=== PATIENT | female | born 1950 | race African-American/Black ===

== ENCOUNTER 2018-11-05 20:45 | Inpatient (IN) | payer MEDICARE, MEDICAID ==
[~2018-11-05] VITALS: Ht 160 cm; Wt 66.3 kg
[2018-11-05 21:52] LABS: BASOPHILS % 0.8 % (0.0-2.0); EOSINOPHILS % 2.6 % (0.0-5.0); HEMATOCRIT. 37.7 % (36.0-48.0); HEMOGLOBIN. 12.5 g/dL (12.0-16.0); LYMPHOCYTES % 36.4 % (20.0-50.0); MEAN CORPUSCULAR HEMOGLOBIN 32.2 pg (28.0-32.0); MEAN CORPUSCULAR VOLUME 97.2 fL (81.0-99.0); MEAN PLATELET VOLUME 9.2 fl (7.4-10.4); MONOCYTES % 9.8 % (2.0-8.0); NEUTROPHILS % 50.4 % (40.0-76.0); PLATELET 294 x1000/uL (130-400); RED BLOOD CELL COUNT 3.88 mill/uL (4.2-5.4); RED CELL DISTRIBUTION WIDTH 14.1 % (11.6-14.6)
[2018-11-05 21:53] LABS: CLARITY URINE CLEAR (CLEAR); COLOR URINE YELLOW (YELLOW); KETONES URINE NEGATIVE (NEGATIVE); LEUKOCYTE ESTERASE URINE 1+ (NEGATIVE); NITRITE URINE NEGATIVE (NEGATIVE); OCCULT BLOOD URINE NEGATIVE (NEGATIVE); PROTEIN URINE TRACE (NEGATIVE); SPECIFIC GRAVITY URINE 1.019 (1.005-1.030); UROBILINOGEN URINE 0.2 E.U./dL (0.2-1.0)
[2018-11-05 21:58] LABS: CHLORIDE 108 mEq/L (98-107)
[2018-11-05 21:59] LABS: INR 1.1; PROTHROMBIN TIME 10.9 sec (9.1-11.1)
[2018-11-05 22:02] LABS: ETHANOL BLOOD < 10 mg/dL
[2018-11-05] MEDS ORDERED: DIPHENHYDRAMINE 50MG/ML VIAL IV PRN (23:15)
[2018-11-05] MEDS ORDERED: LORAZEPAM 2MG/ML CPJ IV PRN (23:15)
[2018-11-05] MEDS ORDERED: ONDANSETRON HCL 4MG/2ML INJ IV PRN (23:15)
[2018-11-05] MEDS ORDERED: GUAIFENESIN 200MG/10ML SUGAR FREE UDC PO PRN (23:15)
[2018-11-05] MEDS ORDERED: DOCUSATE SODIUM 100MG CAPSULE PO PRN (23:15)
[2018-11-05] MEDS ORDERED: HYDROMORPHONE HCL/PF 2MG/ML CPJ IV PRN (23:15)
[2018-11-05] MEDS ORDERED: MAGNESIUM/ALUMINUM HYDROXIDE/SIMETHICONE 30ML UDC PO PRN (23:15)
[2018-11-05] MEDS ORDERED: HYDROCODONE/ACETAMINOPHEN 10/325MG TABLET PO PRN (23:15)
[2018-11-05] MEDS ORDERED: IPRATROPIUM/ALBUTEROL 0.5-3(2.5)MG/3ML NEB INH PRN (23:15)
[2018-11-06 04:55] LABS: BASOPHILS % 0.6 % (0.0-2.0); EOSINOPHILS % 0.5 % (0.0-5.0); HEMATOCRIT. 40.6 % (36.0-48.0); HEMOGLOBIN. 13.3 g/dL (12.0-16.0); LYMPHOCYTES % 18.7 % (20.0-50.0); MEAN CORPUSCULAR HEMOGLOBIN 31.5 pg (28.0-32.0); MEAN CORPUSCULAR VOLUME 96.3 fL (81.0-99.0); MEAN PLATELET VOLUME 8.5 fl (7.4-10.4); MONOCYTES % 5.9 % (2.0-8.0); NEUTROPHILS % 74.3 % (40.0-76.0); PLATELET 297 x1000/uL (130-400); RED BLOOD CELL COUNT 4.21 mill/uL (4.2-5.4); RED CELL DISTRIBUTION WIDTH 14.1 % (11.6-14.6)
[2018-11-06 05:02] LABS: CHLORIDE 109 mEq/L (98-107)
[2018-11-06 05:09] LABS: LDL CHOLESTEROL 106 mg/dL (5-100)
[2018-11-06 05:10] LABS: CREATINE KINASE 50 IU/L (26-192); HDL CHOLESTEROL 43 mg/dL (40-59)
[2018-11-06 05:13] LABS: CREATINE KINASE MB FRACTION < 1.0 ng/mL (0.5-3.6)
[2018-11-06] MEDS: HYDRALAZINE 20MG/ML VIAL IV PRN ×3 (08:36→21:20)
[2018-11-06] MEDS: CLONIDINE 0.1MG TABLET PO PRN (11:59)
[2018-11-06 13:09] LABS: *AMPHETAMINES SCREEN URINE NEGATIVE (NEGATIVE); *BARBITURATES SCREEN URINE NEGATIVE (NEGATIVE); *BENZODIAZEPINES SCREEN URINE NEGATIVE (NEGATIVE); *COCAINE SCREEN URINE NEGATIVE (NEGATIVE); METHADONE URINE SCREEN NEGATIVE (NEGATIVE)
[2018-11-06 13:10] LABS: CANNABINOID URINE SCREEN NEGATIVE (NEGATIVE); OPIATES URINE SCREEN NEGATIVE (NEGATIVE); PHENCYCLIDINE URINE SCREEN NEGATIVE (NEGATIVE)
[2018-11-06 14:49] LABS: CREATINE KINASE 73 IU/L (26-192)
[2018-11-06 14:50] LABS: CREATINE KINASE MB FRACTION 1.1 ng/mL (0.5-3.6)
[2018-11-06] MEDS: SODIUM CHLORIDE 0.9% INJ 3ML FLUSH IVF SCH (22:00)
[2018-11-06 22:41] VITALS: BP 158/68
[2018-11-06 22:50] VITALS: BP 158/68
[2018-11-07] VITALS (12 sets, daily range): BP systolic 129–180; BP diastolic 57–91
[2018-11-07] MEDS: ENOXAPARIN 40MG/0.4ML SYR SUBCUT SCH ×2 (00:59→21:36)
[2018-11-07] MEDS: HYDRALAZINE 20MG/ML VIAL IV PRN ×2 (04:24→11:21)
[2018-11-07] MEDS: SODIUM CHLORIDE 0.9% INJ 3ML FLUSH IVF SCH ×3 (06:46→21:35)
[2018-11-07] MEDS: CLONIDINE 0.1MG TABLET PO PRN (09:24)
[2018-11-07] MEDS ORDERED: AMLODIPINE 5MG TABLET PO SCH (12:00)
[2018-11-07] MEDS: ASPIRIN 81MG EC TABLET PO SCH (12:07)
[2018-11-07] MEDS: ATORVASTATIN CALCIUM 20MG TABLET PO SCH (21:35)
[2018-11-08] VITALS (11 sets, daily range): BP systolic 93–195; BP diastolic 57–94
[2018-11-08] MEDS: ASPIRIN 81MG EC TABLET PO SCH (08:30)
[2018-11-08] MEDS: ACETAMINOPHEN 325MG TABLET PO PRN (08:30)
[2018-11-08] MEDS: METOPROLOL TARTRATE 25MG TABLET PO SCH ×2 (08:41→20:21)
[2018-11-08] MEDS: AMLODIPINE 10MG TABLET PO SCH (08:42)
[2018-11-08] MEDS: LISINOPRIL 10MG TABLET PO SCH (08:42)
[2018-11-08] MEDS: ATORVASTATIN CALCIUM 20MG TABLET PO SCH (20:21)
[2018-11-08] MEDS: SODIUM CHLORIDE 0.9% INJ 3ML FLUSH IVF SCH (21:27)
[2018-11-08] MEDS: ENOXAPARIN 40MG/0.4ML SYR SUBCUT SCH (22:11)
[2018-11-09] VITALS (13 sets, daily range): BP systolic 128–169; BP diastolic 39–102
[2018-11-09] MEDS: CLONIDINE 0.3MG TABLET PO PRN (04:23)
[2018-11-09 05:59] LABS: BASOPHILS % 0.3 % (0.0-2.0); EOSINOPHILS % 0.2 % (0.0-5.0); HEMOGLOBIN. 12.5 g/dL (12.0-16.0); LYMPHOCYTES % 24.8 % (20.0-50.0); MEAN CORPUSCULAR HEMOGLOBIN 31.6 pg (28.0-32.0); MEAN CORPUSCULAR VOLUME 96.2 fL (81.0-99.0); MEAN PLATELET VOLUME 9.3 fl (7.4-10.4); MONOCYTES % 11.7 % (2.0-8.0); PLATELET 301 x1000/uL (130-400); RED BLOOD CELL COUNT 3.95 mill/uL (4.2-5.4)
[2018-11-09] MEDS: SODIUM CHLORIDE 0.9% INJ 3ML FLUSH IVF SCH ×2 (06:00→21:08)
[2018-11-09 06:54] LABS: CHLORIDE 108 mEq/L (98-107)
[2018-11-09] MEDS: LISINOPRIL 10MG TABLET PO SCH (09:32)
[2018-11-09] MEDS: AMLODIPINE 10MG TABLET PO SCH (09:33)
[2018-11-09] MEDS: METOPROLOL TARTRATE 25MG TABLET PO SCH ×2 (09:33→21:09)
[2018-11-09] MEDS: ASPIRIN 81MG EC TABLET PO SCH (09:33)
[2018-11-09] MEDS: ATORVASTATIN CALCIUM 20MG TABLET PO SCH (21:08)
[2018-11-09] MEDS: ENOXAPARIN 40MG/0.4ML SYR SUBCUT SCH (23:00)
[2018-11-10] VITALS (18 sets, daily range): BP systolic 135–178; BP diastolic 45–91
[2018-11-10 06:56] LABS: HEMATOCRIT. 37.3 % (36.0-48.0); HEMOGLOBIN. 12.6 g/dL (12.0-16.0); MEAN CORPUSCULAR HEMOGLOBIN 32.3 pg (28.0-32.0); MEAN CORPUSCULAR VOLUME 95.4 fL (81.0-99.0); MEAN PLATELET VOLUME 9.2 fl (7.4-10.4); PLATELET 293 x1000/uL (130-400)
[2018-11-10 07:05] LABS: CHLORIDE 109 mEq/L (98-107)
[2018-11-10] MEDS: ASPIRIN 81MG EC TABLET PO SCH (09:56)
[2018-11-10] MEDS: AMLODIPINE 10MG TABLET PO SCH (09:57)
[2018-11-10] MEDS: METOPROLOL TARTRATE 25MG TABLET PO SCH ×2 (09:57→20:52)
[2018-11-10] MEDS: LISINOPRIL 10MG TABLET PO SCH (09:57)
[2018-11-10 11:53] LABS: PLATELET ESTIMATE NORMAL
[2018-11-10] MEDS: HYDRALAZINE 20MG/ML VIAL IV PRN (16:01)
[2018-11-10] MEDS: ACETAMINOPHEN 325MG TABLET PO PRN (19:06)
[2018-11-10] MEDS: CLONIDINE 0.3MG TABLET PO PRN (20:51)
[2018-11-10] MEDS: ATORVASTATIN CALCIUM 20MG TABLET PO SCH (20:51)
[2018-11-10] MEDS: SODIUM CHLORIDE 0.9% INJ 3ML FLUSH IVF SCH (21:04)
[2018-11-10] MEDS: ENOXAPARIN 40MG/0.4ML SYR SUBCUT SCH (22:09)
[2018-11-11] VITALS (10 sets, daily range): BP systolic 112–147; BP diastolic 46–79
[2018-11-11] MEDS: SODIUM CHLORIDE 0.9% INJ 3ML FLUSH IVF SCH ×3 (05:09→21:24)
[2018-11-11] MEDS: ASPIRIN 81MG EC TABLET PO SCH (09:11)
[2018-11-11] MEDS: AMLODIPINE 10MG TABLET PO SCH (09:11)
[2018-11-11] MEDS: METOPROLOL TARTRATE 25MG TABLET PO SCH ×2 (09:12→21:24)
[2018-11-11] MEDS: LISINOPRIL 10MG TABLET PO SCH (09:12)
[2018-11-11] MEDS: ATORVASTATIN CALCIUM 20MG TABLET PO SCH (21:24)
[2018-11-11] MEDS: ENOXAPARIN 40MG/0.4ML SYR SUBCUT SCH (23:25)
[2018-11-12] VITALS: BP 144/64
[2018-11-12 04:00] VITALS: BP 140/64
[2018-11-12] MEDS: SODIUM CHLORIDE 0.9% INJ 3ML FLUSH IVF SCH ×3 (06:00→21:41)
[2018-11-12 06:53] LABS: CHLORIDE 107 mEq/L (98-107)
[2018-11-12 07:54] LABS: BASOPHILS % 0.3 % (0.0-2.0); EOSINOPHILS % 2.7 % (0.0-5.0); HEMATOCRIT. 38.9 % (36.0-48.0); HEMOGLOBIN. 12.8 g/dL (12.0-16.0); LYMPHOCYTES % 24.7 % (20.0-50.0); MEAN CORPUSCULAR HEMOGLOBIN 31.7 pg (28.0-32.0); MEAN CORPUSCULAR VOLUME 96.6 fL (81.0-99.0); MEAN PLATELET VOLUME 9.2 fl (7.4-10.4); MONOCYTES % 13.7 % (2.0-8.0); NEUTROPHILS % 58.6 % (40.0-76.0); PLATELET 362 x1000/uL (130-400); RED BLOOD CELL COUNT 4.03 mill/uL (4.2-5.4); RED CELL DISTRIBUTION WIDTH 13.9 % (11.6-14.6)
[2018-11-12 08:00] VITALS: BP 187/79
[2018-11-12] MEDS: AMLODIPINE 10MG TABLET PO SCH (09:00)
[2018-11-12] MEDS: LISINOPRIL 10MG TABLET PO SCH (09:00)
[2018-11-12] MEDS: ASPIRIN 81MG EC TABLET PO SCH (09:00)
[2018-11-12] MEDS: METOPROLOL TARTRATE 25MG TABLET PO SCH ×2 (09:01→21:41)
[2018-11-12 12:00] VITALS: BP 156/69
[2018-11-12 16:00] VITALS: BP 145/60
[2018-11-12 20:00] VITALS: BP 155/69
[2018-11-12] MEDS: ATORVASTATIN CALCIUM 20MG TABLET PO SCH (21:40)
[2018-11-12] MEDS: ENOXAPARIN 40MG/0.4ML SYR SUBCUT SCH (21:41)
[2018-11-13] VITALS: BP 148/74
[2018-11-13 04:00] VITALS: BP 145/80
[2018-11-13] MEDS: SODIUM CHLORIDE 0.9% INJ 3ML FLUSH IVF SCH ×2 (06:00→14:00)
[2018-11-13 08:00] VITALS: BP 136/83
[2018-11-13] MEDS: AMLODIPINE 10MG TABLET PO SCH (10:40)
[2018-11-13] MEDS: ASPIRIN 81MG EC TABLET PO SCH (10:41)
[2018-11-13] MEDS: METOPROLOL TARTRATE 25MG TABLET PO SCH (10:41)
[2018-11-13] MEDS: LISINOPRIL 10MG TABLET PO SCH (10:49)
[2018-11-13 12:00] VITALS: BP 132/79
[2018-11-13 15:25] VITALS: BP 138/56
[2018-11-13 16:00] VITALS: BP 141/61
== END 2018-11-13 18:29 | DRG 65 ==
LOC: ER 20:52 → 5EST 22:13 → EDBEDREQ 22:19 → EDBEDREQTM 22:19 → ENRESERV 11-06 21:01
PROVIDERS: ADMIT Internal Medicine; ATTEND Internal Medicine
DX: I63.211 Cerebral infarction due to unspecified occlusion or stenosis of right vertebral artery (principal); G93.40 Encephalopathy, unspecified; G81.91 Hemiplegia, unspecified affecting right dominant side; R41.4 Neurologic neglect syndrome; E46 Unspecified protein-calorie malnutrition; R47.01 Aphasia; I10 Essential (primary) hypertension; N30.90 Cystitis, unspecified without hematuria; E11.9 Type 2 diabetes mellitus without complications; F03.90 Unspecified dementia, unspecified severity, without behavioral disturbance, psychotic disturbance, mood disturbance, and anxiety; F17.210 Nicotine dependence, cigarettes, uncomplicated; J44.9 Chronic obstructive pulmonary disease, unspecified; R13.10 Dysphagia, unspecified; Z82.49 Family history of ischemic heart disease and other diseases of the circulatory system; Z83.3 Family history of diabetes mellitus; Z91.14 Patient's other noncompliance with medication regimen; Z91.19 Patient's noncompliance with other medical treatment and regimen; Z68.25 Body mass index [BMI] 25.0-25.9, adult
CPT/HCPCS: 36415; 70496; 70551; 71045; 80048; 80061; 80305; 80320; 82550; 82553; 82962; 83605; 83721; 84484; 87070; 87804; 92610; 93005; 93306; 93880; 93970; 96365; 97112; 97163; 97166; 99291; J0360; J1170; J1200; J1650; J2405; A4315; G0480